=== PATIENT | female | born 1980 | race African-American/Black ===

== ENCOUNTER 2016-12-21 21:28 | Emergency (ER) | payer MEDICAID, OTHER ==
[~2016-12-21] VITALS: Ht 160 cm; Wt 57.2 kg
[2016-12-21] MEDS ORDERED: IV NORMAL SALINE 1000 ML BAG IV ONE (22:15)
[2016-12-21] MEDS ORDERED: ACETAMINOPHEN 650 MG/20.3 ML LIQUID UDC PO ONE (22:15)
[2016-12-21 22:34] LABS: *BILIRUBIN,URIN NEGATIVE (NEGATIVE); *BLOOD, URINE 2+ (NEGATIVE); *COLOR,URINE YELLOW (YELLOW); *KETONES,URINE NEGATIVE (NEGATIVE); *PROTEIN,URINE NEGATIVE (NEGATIVE); LEUKOCYTE ESTERASE ,URINE TRACE (NEGATIVE); NITRITE, URINE NEGATIVE (NEGATIVE); UGLUCOSE NEGATIVE (NEGATIVE)
--- NOTE | 2016-12-21 22:35 | NUR ---
PT WALKED INTO ER STATES HAS HAD BODY ACHES,CHILLS AND NAUSEA FOR ABOUT 3 DAYS, PT IS ALERT, ORIENTED X 4, NO RESP DISTRESS NOTED OR REPORTED UPON ASSESSMENT...PT ACCOMPANIED BY AND DAUGHTER WHO ARE AT THE BEDSIDE...
[2016-12-21 22:37] LABS: *URINE HCG, QUAL NEGATIVE (NEGATIVE)
[2016-12-21 22:39] LABS: BASOPHILS % (AUTO) 0.7 % (0.0-2.0); EOSINOPHILS % (AUTO) 0.1 % (0.0-7.0); HEMATOCRIT 42.3 % (37-47); HEMOGLOBIN 14.2 G/DL (12.0-16.0); LYMPHOCYTES % (AUTO) 23.7 % (20.5-51.5); MEAN CORPUSCULAR HEMOGLOBIN 31.7 UUG (27.0-31.0); MEAN CORPUSCULAR HGB CONC 34 g/dL (32.0-37.0); MEAN CORPUSCULAR VOLUME 94.5 FL (81.0-99.0); MONOCYTES # (AUTO) 0.2 K/UL (0.1-1.30); MONOCYTES % (AUTO) 5.1 % (0.0-11.0); NEUTROPHILS # (AUTO) 2.9 K/UL (1.8-8.9); NEUTROPHILS % (AUTO) 70.4 % (38.5-71.5); PLATELET COUNT (AUTO) 145 K/UL (150-450); RED BLOOD CELL COUNT(AUTO) 4.47 MIL/UL (4.2-5.4); WHITE BLOOD COUNT (AUTO) 4.1 K/UL (4.0-11.2)
[2016-12-21] MEDS ORDERED: ACETAMINOPHEN 650 MG/20.3 ML LIQUID UDC ONE (22:41)
[2016-12-21 22:45] LABS: *CLARITY,URINE SLIGHTLY CLOUDY (CLEAR)
[2016-12-21] MEDS ORDERED: IBUPROFEN 600 MG TABLET PO ONE (22:45)
[2016-12-21 22:50] LABS: BILIRUBIN,DIRECT 0.1 mg/dL (0.0-0.2); BILIRUBIN,TOTAL 0.3 mg/dL (0.2-1.0); POTASSIUM 3.6 mmol/L (3.5-5.1); TOTAL PROTEIN, SERUM 8.2 g/dL (6.4-8.2)
[2016-12-21 22:50] LABS: BACTERIA,URINE MODERATE /HPF (NONE SEEN); MUCUS,URINE MODERATE /LPF (0-FEW); SQUAMOUS EPITHELIAL CELL,UR MANY /HPF (NONE SEEN)
[2016-12-21] MEDS ORDERED: IBUPROFEN 600 MG TABLET ONE (23:03)
--- NOTE | 2016-12-22 01:07 | NUR ---
Patient discharged to home in stable conditon. Written and verbal after care instructions given. Patient verbalizes understanding of instructions.
== END 2016-12-22 01:08 | disposition home or self-care (01) ==
LOC: ER 21:46
DX: E86.0 Dehydration (principal); R50.9 Fever, unspecified
CPT/HCPCS: 36415; 71010; 80048; 80076; 81001; 83605; 84703; 85025; 85730; 87040 ×2; 87086; 87400; 93005; 96360; 96361; 99285; A4663; J7030 ×2